=== PATIENT | female | born 1990 | race Caucasian/White ===

== ENCOUNTER 2020-06-05 18:00 | Emergency (ER) | payer OTHER, SELFPAY ==
[~2020-06-05] VITALS: Ht 152.4 cm; Wt 62.6 kg
[2020-06-05 18:06] VITALS: Ht 152.4 cm; Wt 62.6 kg
[2020-06-05 21:57] VITALS: BP 128/90
== END 2020-06-05 20:38 | disposition home or self-care (01) ==
LOC: ED 18:00
DX: R51.9 Headache, unspecified (principal); Z20.828 Contact with and (suspected) exposure to other viral communicable diseases
CPT/HCPCS: U0003